=== PATIENT | female | born 1960 | race Caucasian/White ===

== ENCOUNTER → 2019-10-24 11:49 | Outpatient (CLI) | payer BC, SELFPAY ==
--- NOTE | ~2019-10-24 | CT_ITS ---
EXAMINATION: CT abdomen pelvis w con DATE: 10/24/2019 12:19 INDICATION: Left flank, low back and left lower quadrant abdominal pain. TECHNIQUE: Computed tomography (CT) of the abdomen and pelvis was performed without intravenous contr ast. Automated exposure control and iterative reconstruction technique were employed. The dose-length product was 1112.93 mGy-cm. COMPARISON: CT dated 11/12/2018 and MRI dated 11/23/2018 FINDINGS: Lung bases are clear. Heart size is normal. No pericardial or pleural effusion. Diffuse hepatic steat osis. Cholecystectomy clips at the gallbladder fossa. Spleen, pancreas and left adrenal gland are nor mal. No interval change in a 3.3 cm right adrenal adenoma. Again seen are couple macroscopic fat-cont aining angiomyolipomas at the lower pole of the left kidney, the larger with enhancing soft tissue co mponent measures 2.2 cm and the smaller measures 7 mm. There are a few bilateral centimeter low-atten uation renal cysts. Bilateral ureters are normal. No evident urolithiasis or hydronephrosis. Bladder is normal. The uterus is not identified and has likely been surgically resected. Bowels including t he appendix are normal. Small fat-containing umbilical hernia. No free intraperitoneal gas or fluid. No pathologically enlarged abdominal or pelvic lymphadenopathy. Severe lumbar spondylosis. IMPRESSION: 1. No acute intra-abdominal/pelvic process. 2. Unchanged 3.3 cm right adrenal adenoma. 3. Unchanged 2.2 and 0.7 cm left renal angiomyolipomas. Reviewed, dictated and finalized at location A. 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
[2019-10-24 12:10] LABS: Blood Urea Nitrogen 18 mg/dL (8-26); Estimated Glomerular Filt Rate 50
== END ==
PROVIDERS: PCP Family Medicine; Visit Provider Physician Assistant
DX: D35.01 Benign neoplasm of right adrenal gland (principal); D17.71 Benign lipomatous neoplasm of kidney; R10.32 Left lower quadrant pain
CPT/HCPCS: 74177; Q9967

== ENCOUNTER 2020-01-31 17:17 | Emergency (ER) | payer BC, SELFPAY ==
--- NOTE | ~2020-01-31 | XR_ITS ---
EXAMINATION: XR chest 2V DATE: 01/31/2020 17:57 INDICATION: Fever and shortness of breath TECHNIQUE: PA and lateral views of the chest are obtained. COMPARISON: 07/26/2019 FINDINGS: The lungs are free of acute opacities. There is no pleural effusion or pneumothorax. The ca rdiomediastinal silhouette is normal. There is mild thoracic spondylosis. IMPRESSION: 1. No acute cardiopulmonary abnormality. Reviewed, dictated and finalized at location A.
--- NOTE | ~2020-01-31 | CT_ITS ---
EXAMINATION: CT brain wo con INDICATION: Headache and fever COMPARISON: 08/21/2012 TECHNIQUE: Standard unenhanced head CT. The dose-length product (DLP) was 681.00 mGy-cm. The mA was a djusted according to patient size. Iterative reconstruction technique was employed. FINDINGS: There is no intracranial hemorrhage, acute infarction, or abnormal mass lesion. The ventric les are normal. There is no abnormal mass effect or midline shift. The neumann-white matter differentiat ion is normal. The basal cisterns are patent. The orbits are normal. The paranasal sinuses, mastoids and calvarium are normal. IMPRESSION: 1. No acute intracranial abnormality. Reviewed, dictated and finalized at location A.
--- NOTE | ~2020-01-31 | CT_ITS ---
EXAMINATION: CTA chest PE protocol DATE: 01/31/2020 20:14 INDICATION: Upper back pain and fever TECHNIQUE: Computed tomography angiography (CTA) of the chest was performed with 100 mL Omnipaque-350 intravenous contrast timed to evaluate the pulmonary arteries. Coronal maximum intensity projection 3D-reconstructions were created by the technologist. The dose-length product (DLP) was 873.91 mGy-cm. Automated exposure control and iterative reconstruction technique were employed. COMPARISON: 05/04/2018 FINDINGS: The pulmonary arteries are well-opacified. No pulmonary embolism is identified. There is mi ld dependent atelectasis. The lungs are free of focal airspace opacities. There is no pleural effusio n or pneumothorax. No pathologically enlarged thoracic lymph nodes are identified. The heart size is normal. There is mild thoracic spondylosis. IMPRESSION: 1. No pulmonary embolism or acute cardiopulmonary abnormality. Reviewed, dictated and finalized at location A.
[2020-01-31 17:21] VITALS: BP 144/88; PULSE 135; RESP 26; TEMP 37.1; O2SAT 97
--- NOTE | 2020-01-31 17:28 | ECG_ITS ---
Measurements Intervals [place] Rate: 131 P: 73 OR: 173 QRS: -38 QRSD: 76 T: 59 QT: 297 QTc: 438 Interpretive Statements SINUS TACHYCARDIA POOR R WAVE PROGRESSION, ANTERIOR LEADS INFERIOR INFARCT, AGE INDETERMINATE ABNORMAL ECG Electronically Signed On 02-01-2020 9:46:14 CDT by Mohan Herrera D.O.
[2020-01-31 18:05] LABS: Basophils Percent Auto 0.3 % (0.2-1.2); Eosinophils Percent Auto 0.2 % (0-4.4); Hematocrit 42.7 % (37.0-47.0); Hemoglobin 13.8 g/dL (12.0-15.0); Immature Granulocyte Absolute 0.06 K/mm3 (0.00-0.031); Immature Granulocyte Percent A 0.7 % (0-0.5); Lymphocytes Absolute Auto 1.02 K/mm3 (0.9-3.2); Lymphocytes Percent Auto 11.3 % (18.3-44.2); Mean Corpuscular HGB Conc 32.3 g/dl (32-36); Mean Corpuscular Hemoglobin 27.9 pg (26-34); Mean Corpuscular Volume 86.4 fl (80-100); Mean Platelet Volume 9.8 fl (7.4-10.4); Monocytes Absolute Auto 0.5 K/mm3 (0.1-0.6); Neutrophils Absolute Auto 7.4 K/mm3 (1.3-6.7); Neutrophils Percent Auto 82.5 % (45.5-73.1); Platelet Count Result 289 k/mm3 (150-375); Red Blood Count 4.94 M/mm3 (4.2-5.4); Red Cell Distribution Width 14.5 % (11.5-14.5)
[2020-01-31 18:19] VITALS: BP 157/90; PULSE 132; RESP 14; O2SAT 96
--- NOTE | 2020-01-31 18:19 | PC.NURSE ---
Called lab to add on PT INR PTT, MG, Trop I Baseline, C-reactive Protein.
[2020-01-31 18:21] LABS: Alanine Aminotransferase 43 U/L (4-35); Albumin Level 4.7 g/dL (3.5-5.1); Alkaline Phosphatase 108 U/L (38-126); Aspartate Amino Transferase 49 U/L (14-36); Bilirubin,Total 0.7 mg/dL (0.2-1.3); Blood Urea Nitrogen 16 mg/dL (7-17); Calcium 9.8 mg/dL (8.4-10.2); Carbon Dioxide 25 mmol/L (22-30); Chloride 99 mmol/L (98-107); Estimated CRCL calculation 65 ml/min; Estimated Glomerular Filt Rate 56; Glucose 168 mg/dL (65-105); Sodium 135 mmol/L (137-145)
--- NOTE | 2020-01-31 18:28 | ED.FEVER ---
HPI - Fever General Chief Complaint: Fever Stated Complaint: FEVER Time Seen by Provider: 01/31/20 18:04 Source: patient Mode of arrival: ambulatory Limitations: no limitations History of Present Illness HPI Narrative: This patient is a 59 year old female with history of asthma who presents for evaluation of body aches, headache, chills, diarrhea . She states 8 days ago she was having intermittent low grade fever . That last 2 days and then it resolved. She states she has been feeling well until yesterday. She developed fever of 101 F, headache, body aches, upper back pain and diarrhea. She reports shortness of breath but this is likely chronic due to her asthma. She states she is not really have a cough. She denies abdominal pain or urinary symptoms. She has been taken tylenol for her fever and her last dose was at 3 pm. She denies exposure to sick contacts. She describes her headache as diffuse but it is worse on her right side. Related Data Home Medications Medication Instructions Recorded Confirmed loratadine 10 mg tablet 10 mg PO DAILY 07/22/19 08/16/19 acetaminophen [Acetaminophen Extra 1,000 mg PO Q8H 08/05/19 08/16/19 Strength] aspirin [Aspir-81] 81 mg PO DAILY 08/05/19 08/16/19 biotin 10,000 mcg PO DAILY 08/05/19 08/16/19 oxybutynin chloride 10 mg PO DAILY 08/05/19 08/16/19 Allergies Allergy/AdvReac Type Severity Reaction Status Date / Time propranolol AdvReac Mild Rash Verified 01/31/20 17:27 Review of Systems Review of Systems: All systems reviewed & are unremarkable except as noted in HPI and below Constitutional: Constitutional: Reports chills, Reports fatigue and Reports fever(s) Cardiovascular: Cardiovascular: Denies chest pain and Reports rapid heart rate Respiratory: Respiratory: Denies cough, Denies dyspnea and Denies wheezing Gastrointestinal: Gastrointestinal: Denies abdominal pain, Reports diarrhea and Reports nausea Musculoskeletal: Musculoskeletal: Reports back pain and Reports myalgias Neurologic: Reports headache(s) Endocrine: Endocrine: Reports fatigue PMFSH Past Medical History Medical History (Updated 01/31/20 @ 21:05 by Lelia Denney MD) Essential (primary) hypertension Mild persistent asthma with exacerbation Type 2 diabetes mellitus with diabetic neuropathy, without long-term current use of insulin Surgical History Surgical History (Updated 01/31/20 @ 18:33 by Lelia Denney MD) H/O: hysterectomy Hx of cholecystectomy Social History Social History Smoking status: Never smoker Second hand tobacco smoke exposure: Yes Alcohol intake: current Gender identity (if verbalized by the patient): Female Exam Narrative: Exam Narrative: GENERAL: Well-appearing, well-nourished, and in no acute distress. HEAD: Normocephalic, atraumatic EYES: PERRLA and EOMI, conjunctiva clear without discharge EARS: TM's clear bilaterally without erythema or dullness NOSE: Nares clear, no rhinorrhea or epistaxis THROAT:Mucous membranes moist, Oropharynx normal without erythema, exudate, peritonsillar swelling or fluctuance NECK: Supple, without lymphadenopathy or mass RESPIRATORY: No respiratory distress, Airway patent, Respirations non-labored, Clear to auscultation without rales, rhonchi or wheeze HEART:tachycardic No murmur heard. Normal peripheral pulses. ABDOMEN: Soft, nontender, nondistended, normal active bowel sounds. No masses. No rebound or guarding, No organomegaly. EXTREMITIES: No edema, normal strength with full range of motion. SKIN: Warm, dry, normal color without rash NEURO: Alert and oriented x3. CN 2-12 grossly intact. No focal deficits. PSYCH: Normal mood and affect. Course Reevaluation(s) Reevaluation #1: PAtient states she feels better. I Discussed with patient imaging is unremarkable. I explained I don't know definite source. I Discussed she had blood cultures drawn to see if
[2020-01-31 18:31] VITALS: RESP 16; O2SAT 96
[2020-01-31 18:34] LABS: CRP 6.7 mg/dL (<1.0); Magnesium 1.4 mg/dL (1.6-2.3)
[2020-01-31 18:37] LABS: Prothrombin Time 12.6 Seconds (11.1-14.7)
[2020-01-31 18:39] LABS: Partial Thromboplastin Time 29.9 SECONDS (22.3-36.8)
[2020-01-31 18:42] LABS: Troponin I < 0.012 ng/mL (0.000-0.034)
[2020-01-31 19:06] LABS: Add Urine Microscopic? YES; Appearance Urine Clear (Clear); Bilirubin Urine Negative (Negative); Blood Urine Negative (Negative); Color Urine Yellow (Yellow); Glucose Urine UA Negative (Negative); Ketones Urine Negative (Negative); Leukocyte Esterase Ur Negative LEU/UL (Negative); Mucus Urine Rare /lpf; Nitrate Urine Negative (Negative); Protein Urine 1+ mg/dL (Negative); RBC Urine 0-2 /hpf (0-2); Specific Grav Ur 1.016 (1.001-1.035); Squamous Epithelial Cell Urine Rare /hpf (Few); Urobilinogen Urine Negative mg/dL (<2.0)
[2020-01-31 19:12] LABS: Lactic Acid Reflex 1.9 mmol/L (0.7-2.1)
[2020-01-31 19:36] VITALS: BP 116/70; PULSE 128; RESP 20; TEMP 38.3; O2SAT 96
[2020-01-31] MEDS: LACTATED RINGERS 1,000 ML 999 ML IV CONT (19:38)
[2020-01-31 19:39] LABS: Lactate Dehydrogenase 515 U/L (313-618)
[2020-01-31 19:41] LABS: D Dimer 0.71 ug/mL (<0.48)
[2020-01-31] MEDS: METOCLOPRAMIDE HCL INJ 10 MG/2 ML VIAL IV PUSH (19:41)
[2020-01-31] MEDS: KETOROLAC 30 MG/ML VIAL (*BKC) IV PUSH (19:41)
[2020-01-31 21:09] VITALS: BP 137/73; PULSE 113; RESP 20; TEMP 37; O2SAT 96
[2020-01-31 21:25] VITALS: BP 137/73; PULSE 113; RESP 20; TEMP 37; O2SAT 96
[2020-02-01 13:22] LABS: SARS-CoV-2 RNA PCR Negative
== END 2020-01-31 21:27 | disposition home or self-care (01) ==
PROVIDERS: Emergency Medicine; Emergency Provider General Practice; PCP Family Medicine
DX: R50.9 Fever, unspecified (principal); Z20.828 Contact with and (suspected) exposure to other viral communicable diseases; I10 Essential (primary) hypertension; J45.30 Mild persistent asthma, uncomplicated; E11.40 Type 2 diabetes mellitus with diabetic neuropathy, unspecified; Z79.82 Long term (current) use of aspirin; R00.0 Tachycardia, unspecified; R94.31 Abnormal electrocardiogram [ECG] [EKG]
CPT/HCPCS: 36415; 70450; 71046; 71275; 80053; 81001; 83605; 83615; 83735; 84484; 85025; 85380; 85610; 85730; 86140; 87040; 87635; 93005; 96361; 96374; 96375; 99284; C9803; J1200; J1885; J2765; J7120; Q9967; U0003

== ENCOUNTER 2021-04-22 07:42 | Outpatient (CLI) | payer OTHER, SELFPAY ==
--- NOTE | ~2021-04-22 | US_ITS ---
EXAMINATION: US abdomen limited DATE: 04/22/2021 09:27 INDICATION: Abnormal liver function tests TECHNIQUE: Multiple grayscale and Doppler ultrasound images of the abdomen were obtained. COMPARISON: CT, 10/24/2019 FINDINGS: Bowel gas obscures visualization of the pancreas. The visualized portions of the pancreas a re unremarkable. The liver demonstrates increased echogenicity, heterogenous echotexture, and decreas ed through transmission. No surface nodularity. Normal hepatopetal flow in the main portal vein. The gallbladder is surgically absent. The common bile duct measures 8 mm, consistent with post cholecyste ctomy state. IMPRESSION: 1. Diffuse hepatic steatosis. Reviewed, dictated and finalized at location B.
== END 2021-04-22 07:43 | disposition home or self-care (01) ==
LOC: ANHIMG 07:44
PROVIDERS: PCP Family Medicine; Visit Provider Physician Assistant
DX: R74.8 Abnormal levels of other serum enzymes (principal); K76.0 Fatty (change of) liver, not elsewhere classified
CPT/HCPCS: 76705

== ENCOUNTER 2021-06-17 10:38 | Outpatient (CLI) | payer OTHER, SELFPAY ==
--- NOTE | 2021-06-17 11:00 | NEURO_ITS ---
PATIENT NUMBER: [id number] IMPRESSION: # Complains of right hand numbness. # Right Carpal tunnel syndrome # Normal needle exam. Nerve Conduction Studies Anti Sensory Summary Table Stim Site NR Peak (ms) P-T Amp (?V) Site1 Site2 Delta-P (ms) Dist (cm) Sadiq (m/s) Right Median Anti Sensory (2-3nd Digit) Wrist 4.2 38.0 Wrist 2-3nd Digit 4.2 14.0 33 Wrist 4.4 58.7 Wrist 2-3nd Digit 4.2 14.0 33 Right Radial Anti Sensory (Base 1st Digit) Wrist 2.5 23.0 Wrist Base 1st Digit 2.5 0.0 Right Ulnar Anti Sensory (5th Digit) Wrist 2.5 98.0 Wrist 5th Digit 2.5 14.0 56 Motor Summary Table Stim Site NR Onset (ms) O-P Amp (mV) Site1 Site2 Delta-0 (ms) Dist (cm) Sadiq (m/s) Right Median Motor (Abd Poll Brev) Wrist 4.0 1.1 Elbow Wrist 6.2 29.0 47 Elbow 10.2 1.8 Right Ulnar Motor (Abd Dig Minimi) Wrist 2.8 6.0 A Elbow Wrist 5.2 28.0 54 A Elbow 8.0 4.6 F Wave Studies NR F-Lat (ms) L-R F-Lat (ms) Right Median (Mrkrs) (Abd Poll Brev) 28.77 Right Ulnar (Mrkrs) (Abd Dig Min) 28.30 EMG Side Muscle Nerve Root Ins Act Fibs Amp Dur Recrt Comment Right 1stDorInt Ulnar C8-T1 Nml Nml Nml Nml Nml Right Ext Indicis Radial (Post Int) C7-8 Nml Nml Nml Nml Nml Right Ext Digitorum Radial (Post Int) C7-8 Nml Nml Nml Nml Nml Right BrachioRad Radial C5-6 Nml Nml Nml Nml Nml Right PronatorTeres Median C6-7 Nml Nml Nml Nml Nml Right Abd Poll Brev Median C8-T1 Nml Nml Nml Nml Nml Right Triceps Radial C6-7-8 Nml Nml Nml Nml Nml MTDD
== END 2021-06-17 10:39 | disposition home or self-care (01) ==
PROVIDERS: PCP Family Medicine; Visit Provider Physician Assistant
DX: G56.01 Carpal tunnel syndrome, right upper limb (principal)
CPT/HCPCS: 95886; 95909

== ENCOUNTER 2021-11-02 16:13 | Outpatient (CLI) | payer OTHER, SELFPAY ==
--- NOTE | 2021-11-02 16:24 | ECG_ITS ---
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
== END 2021-11-02 16:14 | disposition home or self-care (01) ==
LOC: ANHCARD 16:16
PROVIDERS: PCP Family Medicine; Visit Provider Plastic Surgery
DX: I47.1 Supraventricular tachycardia (principal); I44.0 Atrioventricular block, first degree
CPT/HCPCS: 93005

== ENCOUNTER 2022-10-18 10:54 | Outpatient (RCR) | payer OTHER, SELFPAY ==
--- NOTE | 2022-10-18 12:56 | PTOPEVAL1 ---
Assessment and note entered by Theresa Beard, PT Evaluation Information Assessment Status Evaluation Diagnosis Back Pain Onset 10/14/22 Subjective Information Laura Gilmore reports she was diagnosed with arthritis in her back at the age of 21. She has tried physical therapy a couple times over the years but she got the most relief when using Diclofenac. She is unable to take that medication anymore though due to her kidneys. She recently applied for disability and so her doctor ordered updated spine x-rays and want to do a MRI as well. Her insurance will not let her get a MRI until she tries physical therapy again. She is reporting that back pain is on the right lower back and has gradually worsened over the years. She notes pain is worst first thing in the morning and the pain wakes her up at least once every night. She notes pain when she rolls over in bed and occasionally with prolonged walking or standing. She does not perform any regular exercises to treat her pain but is willing to learn and give it a try. Reported Pain Level Pain Score 4: Self Report Assessment PT Clinical Summary Laura Gilmore is a 62 y/o female who presents with chronic low back pain with an exacerbation on . She has difficulty with sleeping, rolling in bed, prolonged standing, and prolonged walking. 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 She objectively demonstrates decreased and painful lumbar AROM, tenderness at the right sacroiliac joint and L3 and L5 spinous processes, reproduction of pain with slump testing bilaterally, decreased core and hip girdle strength, and decreased functional abilities. She will benefit from skilled PT to address these physical and functional limitations. Plan of Care Interventions Electrical Stimulation,Hot Pack/Cold Pack,Manual Therapy,Neuro Re-education,Patient/Caregiver Educati,Therapeutic Activities,Therapeutic Exercise PT Services Indicated Yes Treatment Frequency and 2 times a week for 8 visits. Duration These treatments will address the objective and functional deficits as defined above. The patient will be advanced safely and appropriately in order for the patient to progress towards his/her prior level of function. Additional exercises will be introduced and as well as a comprehensive home exercise program upon discharge, if needed, ?to ensure carryover of functional gains achieved in the clinic. This
--- NOTE | 2022-12-21 17:33 | PTOPREEVAL ---
Assessment and note entered by JT File, PT Evaluation Information Assessment Status Re-evaluation Diagnosis Back Pain Onset 10/14/22 Subjective Information patient rpeorts she continues to be woken up by pain at times. she reports this happened last night. she reports her pain has been worse since she went on her trip. she complains of pain with rotation to the R, and NT in the lower back when reaching overhead and bending forward. Assessment PT Clinical Summary mrs. north presents to skilled PT services for her 8th skilled therapy visit. she continues to report pain in the lower back with activity. she has had a small setback from her trip, and would like to continue therapy to bring her pain down and achieve her remaining goals. as of this date, she has made progress towards all, but only met 1 goal. she continues to be a good candidate for rehab and would benefit from continued skilled PT intervention to achieve her remaining goals. Plan of Care Interventions Electrical Stimulation,Hot Pack/Cold Pack,Manual Therapy,Neuro Re-education,Patient/Caregiver Educati,Therapeutic Activities,Therapeutic Exercise PT Services Indicated Yes Treatment Frequency and continue skilled PT 1x weekly for 4 more visits Duration These treatments will address the objective and functional deficits as defined above. The patient will be advanced safely and appropriately in order for the patient to progress towards his/her prior level of function. Additional exercises will be introduced and as well as a comprehensive home exercise program upon discharge, if needed, ?to ensure carryover of functional gains achieved in the clinic. This treatment plan has been reviewed and agreement upon by the patient.
--- NOTE | 2023-01-18 09:02 | PTOPDC ---
Assessment and note entered by Farhat Vaz Evaluation Information Assessment Status Discharge Diagnosis back pain Onset 10/14/22 Subjective Information Pt. reports that her pain is less intense. She reports she still gets a brief twinge of pain with reaching overhead, but is able to be on her feet longer. She states that she will continue with exercise and is ready for discharge at this time. Assessment PT Clinical Summary Pt. demonstrates little change in her Oswestry score. Despite this she presents with improved subjective reports of pain. At this time she is encouraged to continue with her HEP addressing core strength and flexiblity and will be discharged from our care. Plan of Care PT Services Indicated Yes
== END 2023-01-03 23:59 | disposition home or self-care (01) ==
LOC: CHSPT 10:54
PROVIDERS: Visit Provider Nurse Practitioner
DX: M54.9 Dorsalgia, unspecified (principal)
CPT/HCPCS: 97014; 97110; 97112; 97140; 97161; G0283

== ENCOUNTER 2022-10-26 10:55 | Outpatient (CLI) | payer OTHER, SELFPAY ==
--- NOTE | 2022-10-28 15:01 | WPDHOLTEREM ---
Holter/Event Monitor Holter/Event Monitor Date of procedure: 10/26/22 Holter/Event Procedure: 48 Hr Holter Monitor Indications: Palpitations Conclusion: 1. 48 hour holter monitor on 10/26/22. 2. Underlying rhythm is sinus rhythm. HR range 63-111 bpm; average HR 79 bpm. 3. There are 3 premature supraventricular complexes and 4 supraventricular couplets. No supraventricular tachycardia. 4. There are 7 premature ventricular complexes and 1 ventricular triplet. No ventricular tachycardia. 5. No sinoatrial or atrioventricular blocks. No significant pauses greater than 2 seconds. 6. No symptoms available for correlation.
== END 2022-10-26 10:56 | disposition home or self-care (01) ==
PROVIDERS: PCP Family Medicine; Visit Provider Nurse Practitioner
DX: R00.2 Palpitations (principal)
CPT/HCPCS: 93225; 93226

== ENCOUNTER 2022-12-06 08:25 | Outpatient (CLI) | payer OTHER, SELFPAY ==
--- NOTE | ~2022-12-06 | NM_ITS ---
EXAMINATION: NM elmer stress w perfusion DATE: 12/06/2022 11:27 INDICATION: Dyspnea on exertion. TECHNIQUE: Rest images were obtained following intravenous administration of 10.1 mCi Tc99m tetrofosm in (Myoview). The patient was infused intravenously with Lexiscan (regadenoson). Then, 31.1 mCi Tc99m tetrofosmin (Myoview) was administered intravenously, and supine and prone stress images were obtain ed. Data was reconstructed into short axis and horizontal and vertical long axis SPECT images. Gated SPECT images were also obtained. COMPARISON: Myocardial perfusion imaging 04/18/2018, chest CT 01/31/2020 FINDINGS: There is no definite reversible or fixed perfusion abnormality to suggest ischemia or infar ction. There is no segmental wall motion abnormality. Left ventricular ejection fraction measures 6 1%. IMPRESSION: 1. No definite ischemia or infarct. 2. Normal left ventricular ejection fraction measuring 61%. Reviewed, dictated and finalized at location A.
--- NOTE | 2022-12-06 08:38 | ECHO_ITS ---
Patient Info Name: Laura Gilmore Age: 62 years : 1960 Gender: Female Ht: 64 in Wt: 210 lbs BSA: 2.12 m2 HR: 75 bpm BP: 109 / 76 mmHg Technical Quality: Good Exam Date: 12/06/2022 8:44 AM Exam Location: [facility] Patient Status: Outpatient Admit Date: 12/06/2022 Staff Ordering Physician: Mohan Herrera DO Preventive Medicine Officer: Ana Laura Mcduffie RDCS Attending Provider: Mohan Herrera DO Referring Physician: Javier PERDOMO; Exam Type: CA echo doppler color flow Study Info Indications R06.09 - Other forms of dyspnea Complete two-dimensional, color flow and Doppler transthoracic echocardiogram is performed. Summary 1. Complete two-dimensional, color flow and Doppler transthoracic echocardiogram is performed. 2. Left ventricular chamber dimension is normal. 3. Left ventricular systolic function is normal, estimated at 60-65%. 4. The left ventricular diastolic function is grade I diastolic dysfunction. 5. E/e' 12 is mildly elevated. 6. Global longitudinal strain is normal at -18.8%. 7. Left atrial chamber dimension is mildly enlarged. 8. There is mild aortic valve sclerosis. 9. The mitral valve has mildly calcified annulus. 10. No pulmonary hypertension, estimated pulmonary arterial systolic pressure is 25 mmHg. Left Ventricle E/e' 12 is mildly elevated. Global longitudinal strain is normal at -18.8%. Left ventricular chamber dimension is normal. Left ventricular systolic function is normal, estimated at 60-65%. The left ventricular diastolic function is grade I diastolic dysfunction. Right Ventricle Right ventricular systolic function is normal and with normal TAPSE 2.0 cm. Right ventricular chamber dimension is normal. Left Atria Left atrial chamber dimension is mildly enlarged. Right Atria Right atrial chamber dimension is normal. Aortic Valve The aortic valve is trileaflet. There is mild aortic valve sclerosis. There is no aortic valve stenosis. There is no aortic valve regurgitation. Pulmonic Valve There is no pulmonic regurgitation. Mitral Valve The mitral valve has mildly calcified annulus. There is no mitral valve stenosis. There is no mitral valve regurgitation. Tricuspid Valve There is no tricuspid valve regurgitation. No pulmonary hypertension, estimated pulmonary arterial systolic pressure is 25 mmHg. Pericardium/Pleural There is no pericardial effusion. Inferior Vena Cava Normal inferior vena cava with >50% collapse upon inspiration consistent with normal right atrial pressure, 5 mmHg. Aorta The aortic root size at the sinus of Valsalva is normal. Left Ventricular Outflow Tract Name Value Normal LVOT 2D LVOT Diameter 1.9 cm LVOT Doppler LVOT Peak Gradient 4 mmHg LVOT Mean Gradient 2 mmHg LVOT VTI 20 cm LVOT VTI/AV VTI Ratio 0.9 LVOT Stroke Volume 56 ml LVOT CO 4.2 l/min LVOT CI 2.0 l/min/m2 Pulmonic Valve
--- NOTE | 2022-12-06 08:38 | EST_ITS ---
Patient Info Name: Laura Gilmore Age: 62 years : 1960 Gender: Female Ht: 64 in Wt: 210 lbs BSA: 2.12 m2 HR: 73 bpm BP: 117 / 71 mmHg Heart Rhythm: Sinus Rhythm Exam Date: 12/06/2022 10:24 AM Exam Location: [facility] Stress Patient Status: Outpatient Admit Date: 12/06/2022 Staff Ordering Physician: Mohan Herrera DO Attending Provider: Mohan Herrera DO Exercise Technologist: Yola Basilio CT Exercise Physician: Mohan Herrera DO Exam Type: CA stress elmer w NM Study Info Indications R06.09 - Other forms of dyspnea A regadenoson stress test was performed. Summary 1. 1. Negative lexiscan stress test for ischemic ST changes by ECG criteria. 2. 2. Stable hemodynamics throughout the test. 3. 3. Nuclear scan to follow and will be reported separately. Please correlate with it. 4. 4. Patient informed of the above results. Protocol: Lexiscan Stress ECG Details Stage: REST Duration (min): 1 min : 17 sec HR (bpm): 77 SBP (mmHg): 117 DBP (mmHg): 71 Stage: REST Duration (min): 8 min : 27 sec HR (bpm): 76 SBP (mmHg): 117 DBP (mmHg): 71 Stage: STAGE 1 Duration (min): 0 min : 59 sec HR (bpm): 96 SBP (mmHg): 113 DBP (mmHg): 72 Stage: RECOVERY Duration (min): 1 min : 0 sec HR (bpm): 106 SBP (mmHg): 113 DBP (mmHg): 72 Stage: RECOVERY Duration (min): 2 min : 0 sec HR (bpm): 106 SBP (mmHg): 113 DBP (mmHg): 72 Stage: RECOVERY Duration (min): 3 min : 0 sec HR (bpm): 106 SBP (mmHg): 111 DBP (mmHg): 70 Stage: RECOVERY Duration (min): 3 min : 18 sec HR (bpm): 103 SBP (mmHg): 111 DBP (mmHg): 70 Rest HR: 76 bpm Peak HR: 107 bpm Rest Sys BP: 117 mmHg Peak Sys BP: 113 mmHg Max Pred HR: 156 bpm % Max Pred HR: 69 % Target HR: 133 bpm Max RPP: 12,091 bpm*mmHg Termination Reason: Completed protocol Cardiac Symptoms: Shortness of breath Total Time: 1 min : 0 sec Rest Morillo BP: 71 mmHg Peak Morillo BP: 72 mmHg Total Dose: 0.4 mg Resting ECG Sinus rhythm, delayed precordial R/S transition. Stress ECG No ST changes. Arrhythmias None. Report Signatures
== END 2022-12-06 08:26 | disposition home or self-care (01) ==
PROVIDERS: PCP Family Medicine; Visit Provider Internal Medicine Cardiovascular Disease
DX: R06.09 Other forms of dyspnea (principal)
CPT/HCPCS: 78452; 93017; 93306; A9502; J2785

== ENCOUNTER → 2023-01-17 11:50 | Outpatient (CLI) | payer OTHER, SELFPAY ==
--- NOTE | ~2023-01-17 | XR_ITS ---
Left elbow Technique: AP, oblique, and lateral views were obtained. Clinical History: Pain Findings: No acute fracture or dislocation is seen. Osseous alignment is anatomic. Joint spaces are p reserved. There is no displacement of the fat pads, and soft tissues are unremarkable. Impression: Unremarkable radiographs. Reviewed, dictated and finalized at location . Impression: Unremarkable radiographs.
--- NOTE | ~2023-01-17 | XR_ITS ---
Right ankle Technique: AP, oblique, and lateral views were obtained. Clinical History: Pain Findings: Tiny avulsion fracture from the tip of the lateral malleolus, likely chronic. No other frac ture or dislocation seen. Ankle mortise and other visualized joint spaces are preserved. Soft tissue s are otherwise unremarkable. Impression: Tiny avulsion fracture from the tip the lateral malleolus, likely chronic. Reviewed, dictated and finalized at location M. Impression: Tiny avulsion fracture from the tip the lateral malleolus, likely chronic.
== END ==
PROVIDERS: PCP Family Medicine; Visit Provider Family Medicine
DX: M25.522 Pain in left elbow (principal); S82.61XA Displaced fracture of lateral malleolus of right fibula, initial encounter for closed fracture; W19.XXXA Unspecified fall, initial encounter
CPT/HCPCS: 73080; 73610

== ENCOUNTER → 2023-02-11 09:23 | Outpatient (CLI) | payer OTHER, SELFPAY ==
--- NOTE | ~2023-02-11 | MR_ITS ---
MRI of the lumbar spine Clinical History: Back pain Technique: Axial T2-weighted images, and sagittal T1-weighted, T2-weighted, and T2 fat-sat images wer e acquired. Findings: There is no acute fracture identified in the lumbar spine. 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 There are reactive marrow signal changes throughout the L2 and L3 vertebral bodies, likely due to underlying degenerative disc change. 3 mm retrolisthesis of L2 ov er L3 present. 3 mm retrolisthesis of L3 over L4 present. 2 mm retrolisthesis of L4 over L5 present. At L1-L2, there is advanced degenerative disc narrowing. There is severe facet arthropathy. No signif icant disc bulge present. There is minimal central canal stenosis. Bilateral neural foramina are pres erved. At L2-L3, there is severe disc narrowing with diffuse disc bulge and severe facet arthropathy. There is moderate to severe central canal stenosis/thecal sac compression. There is moderate to severe righ t neural foraminal narrowing. There is mild left neural foraminal narrowing. At L3-L4, there is advanced degenerative disc narrowing. There is disc bulge and advanced facet arthr opathy, which contribute to moderate to severe spinal canal stenosis/thecal sac compression. There is moderate to severe left neural foraminal narrowing and mild right neural foraminal narrowing. At L4-L5, there is severe degenerative disc narrowing. There is minimal disc bulge with advanced face t arthropathy. No fidel central canal stenosis. There is moderate right neural foraminal narrowing an d mild to moderate left neural foraminal narrowing. At L5-S1, there is no disc bulge or herniation. There is severe facet arthropathy. No central canal s tenosis or neural foraminal narrowing. Paravertebral soft tissues are unremarkable. Impression: Moderate to severe degenerative spondylosis, as detailed above. Multiple grade 1 retrolistheses, as detailed above. Reviewed, dictated and finalized at location M. Impression: Moderate to severe degenerative spondylosis, as detailed above. Multiple grade 1 retrolistheses, as detailed above.
== END ==
PROVIDERS: PCP Family Medicine; Visit Provider Family Medicine
DX: M47.896 Other spondylosis, lumbar region (principal)
CPT/HCPCS: 72148

== ENCOUNTER → 2023-03-20 11:35 | Outpatient (CLI) | payer MEDICARE, SELFPAY ==
--- NOTE | ~2023-03-20 | CT_ITS ---
EXAMINATION: CT abdomen wo/w con DATE: 03/20/2023 12:14 INDICATION: Adrenal adenoma TECHNIQUE: Computed tomography (CT) of the abdomen and pelvis was performed without and with 100 mL O mnipaque-350 intravenous contrast. Automated exposure control and iterative reconstruction technique were employed. The dose-length product was 2140.33 mGy-cm. COMPARISON: 10/24/2019 FINDINGS: Mild atelectasis/scarring at the right middle lobe. Heart size is normal. No pericardial or pleural e ffusion. Cholecystectomy clips the gallbladder fossa. Liver, spleen, and pancreas are normal. Bilater al low-attenuation adrenal adenomas the largest on the right measuring 3.2 cm with 2 smaller adenomas at the left adrenal gland, the larger at the lateral limb measuring 1.3 cm with 7 mm adenoma at the medial limb. 2.5 cm mixed fat and soft tissue density angiomyolipoma at the lower pole of the left ki dney. Additional 8 mm macroscopic fat attenuation angiomyolipoma at the lower pole of the left kidney . Small bilateral renal cysts the largest measuring 1.1 cm the upper pole of the right kidney. Visual ized portions of bowels including the appendix are normal. No pathologically enlarged abdominal lymph adenopathy. Small fat-containing umbilical hernia. Severe lumbar and moderate lower thoracic spondylo sis. IMPRESSION: 1. Bilateral adrenal adenomas the largest on the right measuring 3.1 cm. 2. 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 Multiple angiomyolipomas can be seen in the setting of a comatose disease includ ing tuberous sclerosis, von Hippel-Lindau (vHL) syndrome, neurofibromatosis type I (NF1) and lymphang ioleiomyomatosis (GRAF). 3. Small fat-containing umbilical hernia. Reviewed, dictated and finalized at location A. IMPRESSION: 1. Bilateral adrenal adenomas the largest on the right measuring 3.1 cm. 2. A couple macroscopic fat attenuation angiomyolipomas at the lower pole of th e left kidney the larger measuring 2.5 cm. Multiple angiomyolipomas can be seen in the setting of a comatose disease including tuberous sclerosis, von Hippel- Lindau (vHL) syndrome, neurofibromatosis type I (NF1) and lymphangioleiomyomato sis (GRAF). 3. Small fat-containing umbilical hernia.
[2023-03-20 11:54] LABS: Estimated Glomerular Filt Rate 50
== END ==
PROVIDERS: PCP Family Medicine; Visit Provider Internal Medicine Endocrinology, Diabetes & Metabolism
DX: D35.02 Benign neoplasm of left adrenal gland (principal); D35.01 Benign neoplasm of right adrenal gland
CPT/HCPCS: 74170; Q9967

== ENCOUNTER 2024-05-08 00:20 | Day surgery (SDC) | payer MEDICARE, SELFPAY ==
[2024-05-01 15:13] VITALS: BMI 36.7
--- NOTE | 2024-05-01 15:38 | PC.NURSE ---
Addendum entered by Summer Oswald RN 05/01/24 16:15: Pt is aware that Dr Vivas wants her to have Nothing to eat after Midnight, and nothing to drink 8 hours prior to Surgery-(nothing after 05:00am that morning). Original Note: Report to the Outpatient Waiting Room, entrance under the green pavilion located off [facility], at time __11:15am on date _05/08/24 . Planned Procedure Time: ___1:30pm .? Time changes happen often and if your time is changed the preop area will call you the afternoon before. - You and your visitor will be asked to self-screen and do not enter if you have any COVID symptoms. Please call surgeon if you need to reschedule. - A mask is optional within the hospital at this time. Patients may have clear liquids (water, carbonated beverages, clear teas, apple juice) until 3 hours prior to surgery with a maximum of 20 ounces. - No food from midnight until time of surgery and no smoking Take only the following medications with a SIP of water on the morning of surgery: None May use inhalers as needed. DO NOT STOP ANY OF YOUR OTHER PRESCRIPTION MEDICATIONS PRIOR TO SURGERY EXCEPT THE FOLLOWING Medications to discontinue per physician ____Hold all Vitamins, Supplements, Probiotics, and Herbs 3 days prior per Anesthesia Date to take last dose___05/04/[address] Vivas office today to make sure she has instructions on her Aspirin preop instructions. office Phone # given to pt . Please no make-up, nail luxembourgish, hairspray, perfume, deodorant, or body powder the day of surgery.? No jewelry (including any body piercings) or valuables the day of surgery, leave them at home.? Please take a shower or bath the night before, or the morning of, surgery with an antibacterial soap.? Wear comfortable, loose fitting clothing.? Children are encouraged to wear pajamas. - Jewelry must be removed prior to entering the operating room.? Rings and piercings that are not removed may be cut off. - The hospital will not accept responsibility for valuables.? - Please leave all valuables, including medications, at home the day of surgery. If you are going home after surgery, a licensed company truck driver must drive you home.? - NO public transportation without another adult if you receive anesthesia. - We recommend that an adult stay with you for 24 hours following discharge. - We also recommend that you do not drive, make important decision, drink alcoholic beverages, or take any drugs that were not prescribed by your health care provider for at least 24 hours after your discharge time. Follow any additional instructions given to you from your surgeon. Telephone instructions given to ___patient and asked if any additional questions and then verbalized understanding. Patient advised to call surgeon office or pre surgery nurse liaison [phone] if any additional questions.
--- NOTE | 2024-05-08 06:58 | P.OP_ITS ---
Procedure Note - Detailed Date of Procedure 05/08/24 Pre-op Diagnosis trigger finger right ring finger Post-op Diagnosis Same Procedure Performed right ring finger a1 galdino release Surgeon Iona Vivas MD System Safety Engineer dylan mcdaniels pa-c Anesthesia MAC Description of Procedure INFORMED CONSENT: The patient was seen and examined and marked in the pre-op area.? The patient signed the consent form. PROCEDURE IN DETAIL:The patient taken back to OR on the stretcher in supine position. Time out performed with anesthesia, surgeon and staff agreeing on patient's name site and surgery to be performed SCDs were placed on the lower extremities and inflated. A tourniquet was placed on {right} upper extremity and antibiotics given IV After anesthesia administered sedation I injected {3}cc 1%lido and 0.5% marcaine plain at the operative site The?{right upper extremity}?was prepped and draped in sterile fashion the??{right upper extremity} was? exsanguinated with Esmarch bandage and tourniquet inflated to 250mmHg I proceeded with making a longitudinal incision over the right ring finger a1 galdino through skin and dermis with a 15 blade scalpel. Littler scissors were used to spread down to a1 galdino. The A1 galdino was initially incised with 15 blade then littler scissors were used to spread above and below it proximally and distally and completing the transection entirely. Ragnell retractors were used to withdraw the FDS and FDP tendons for inspection. They were free of masses and synovitis and gliding smoothly in the sheath without triggering or crepitus. The tendos were allowed to retract back in to the wound and I irrigated with normal saline and closed with 4-0 chromic. A dressing of xeroform, 4x4, agustina, and an harmeet bandage was applied after the tourniquet was let down noting the hand was warm and well perfused. The patient was then awaken from anesthesia and transferred to the recovery room in stable condition.? Complications - none EBL- 0cc Disposition - home in stable conditions Dylan Mcdaniels PA-C was essential for positioning, retraction, closure and dressing placement AM Billing Surgery - Charge Forward: Surgery Billing ([id number] for dylan)
--- NOTE | 2024-05-08 06:58 | PM.HPGS ---
History of Present Illness History of Present Illness Chief complaint: trigger finger right ring finger Narrative: Patient seen and examined in pre-operative holding area. No interval change in medical history or symptoms. Patient recalls previous discussion of benefits and alternatives to procedure. Continues to desire to proceed with right ring finger a1 galdino release. Reviewed procedure, post-op expectations and risks including but not limited to bleeding, infection, injury to tendon/nerve/vessel, decreased hand function, stiffness, RSD, no change or worsening of symptoms. I discussed the possible use of assistants and their participation in the case. Patient stated understanding and signed the consent form wishing to proceed. Review of Systems Review of Systems: All systems reviewed & are unremarkable except as noted in HPI and below PMFSH Past Medical History Medical History Asthma Essential (primary) hypertension Type 2 diabetes mellitus with diabetic neuropathy, without long-term current use of insulin Surgical History Surgical History H/O blepharoplasty H/O partial adrenalectomy H/O: hysterectomy Hx of cholecystectomy Family History Family History Father Diabetes mellitus Hypertension Malignant neoplasm of prostate Mother Hypertension Family history of malignant neoplasm of stomach, Onset Age: 71 Family history of primary malignant neoplasm of liver, Onset Age: 71 Family history of malignant neoplasm of uterus, Onset Age: 71 Grandparent Carcinoma of colon Family history of lung cancer Family history of malignant neoplasm of uterus Social History Social History Social History: Smoked in high school, rarely Years smoked: 4 Smoking status: Former smoker Tobacco type: cigarettes Second hand tobacco smoke exposure: Yes Smoking end date: 03/11/79 Alcohol intake: current Drinks per week: 2 Alcohol use details: Rarely Substance use: never Do You Feel Safe in your Home?: Yes Lack of Transportation: No Lack of Food: Never True Current Housing: I Have Housing Concerned About Future Housing: No Difficulty Paying Gas/Electric Bills: No Difficulty Paying for Meds: No Currently Unemployed: No Education: High School Diploma/GED Difficulty w/ Childcare or Family Care: No Living arrangements: with family Additional living arrangements comments: Gender identity (if verbalized by the patient): Female Spiritual care concerns: No Meds Home Medications and Allergies Home Medications Medication Instructions Recorded Confirmed Type loratadine 10 mg tablet (Claritin) 10 mg PO DAILY 07/22/19 05/01/24 History biotin 10,000 mcg capsule 10,000 mcg PO DAILY 08/05/19 05/01/24 History inhalational spacing device #1 ea 12/27/19 04/30/24 Rx (Aerochamber MV spacer) ascorbic acid (vitamin C) 1,000 mg 1 g PO DAILY 01/25/22 05/01/24 History tablet metformin 500 mg tablet,extended 500 mg PO DAILY 01/25/22 05/01/24 History release 24 hr cholecalciferol (vitamin D3) 125 125 mcg PO DAILY 10/24/22 05/01/24 History mcg (5,000 unit) capsule magnesium hydroxide 400 mg (170 mg 400 mg PO DAILY 10/24/22 05/01/24 History magnesium) chewable tablet vibegron 75 mg tablet (Gemtesa) 75 mg PO DAILY 10/24/22 05/01/24 History zinc gluconate 50 mg tablet 50 mg PO DAILY 10/24/22 05/01/24 History Symbicort 160 mcg-4.5 2 puff inhalation Q12H #30.6 grams 11/21/22 05/01/24 Rx mcg/actuation HFA aerosol inhaler (budesonide-formoterol) albuterol sulfate 90 mcg/actuation 1 - 2 puff inhalation Q4-6H PRN 11/23/22 05/01/24 Rx aerosol inhaler shortness of breath or wheezing #25.5 grams semaglutide 2 mg/dose (8 mg/3 mL) 2 mg subcut WEEKLY 1
[2024-05-08 11:39] VITALS: BP 126/66; PULSE 75; RESP 18; TEMP 36.2; O2SAT 100
--- NOTE | 2024-05-08 11:58 | WPDANESEPPF ---
Anes - Initial Pre Proc Eval Procedure: Operation Date: 05/08/24 13:15 Proposed Procedures p Right Ring Trigger Finger Release - Iona Vivas MD Date/Time: 05/08/24 11:58 Surgeon: Iona Vivas MD Pre Op Diagnosis: trigger finger right ring finger Patient Data Age: 63 Gender: F Height: 1.63 m Weight: 97 kg Allergies Allergy/AdvReac Type Severity Reaction Status Date / Time propranolol AdvReac Intermediate Rash Verified 05/01/24 14:43 naproxen [From Aleve] AdvReac Mild Nausea and Verified 05/01/24 14:43 Vomiting Home Medications Medication Instructions Recorded Confirmed Type loratadine 10 mg tablet (Claritin) 10 mg PO DAILY 07/22/19 05/01/24 History biotin 10,000 mcg capsule 10,000 mcg PO DAILY 08/05/19 05/01/24 History inhalational spacing device #1 ea 12/27/19 04/30/24 Rx (Aerochamber MV spacer) ascorbic acid (vitamin C) 1,000 mg 1 g PO DAILY 01/25/22 05/01/24 History tablet metformin 500 mg tablet,extended 500 mg PO DAILY 01/25/22 05/01/24 History release 24 hr cholecalciferol (vitamin D3) 125 125 mcg PO DAILY 10/24/22 05/01/24 History mcg (5,000 unit) capsule magnesium hydroxide 400 mg (170 mg 400 mg PO DAILY 10/24/22 05/01/24 History magnesium) chewable tablet vibegron 75 mg tablet (Gemtesa) 75 mg PO DAILY 10/24/22 05/01/24 History zinc gluconate 50 mg tablet 50 mg PO DAILY 10/24/22 05/01/24 History Symbicort 160 mcg-4.5 2 puff inhalation Q12H #30.6 grams 11/21/22 05/01/24 Rx mcg/actuation HFA aerosol inhaler (budesonide-formoterol) albuterol sulfate 90 mcg/actuation 1 - 2 puff inhalation Q4-6H PRN 11/23/22 05/01/24 Rx aerosol inhaler shortness of breath or wheezing #25.5 grams semaglutide 2 mg/dose (8 mg/3 mL) 2 mg subcut WEEKLY 08/25/23 05/01/24 History subcutaneous pen injector (Ozempic) blood sugar diagnostic (OneTouch #100 ea 11/30/23 04/30/24 Rx Verio test strips) montelukast 10 mg tablet 10 mg PO DAILY #90 tabs 01/17/24 05/01/24 Rx omeprazole 40 mg capsule,delayed 40 mg PO BID #180 caps 03/26/24 05/01/24 Rx release icosapent ethyl 1 gram capsule 2 g PO BID #360 caps 03/27/24 05/01/24 Rx pregabalin 100 mg capsule 100 mg PO BID 90 days #180 caps 04/30/24 05/01/24 Rx aspirin 81 mg tablet,delayed 81 mg PO DAILY 05/01/24 05/01/24 History release (Adult Low Dose Aspirin) azelastine 137 mcg (0.1 %) nasal 1 spray intranasal Q12H PRN Nasal 05/01/24 05/01/24 History spray Congestion calcium carbonate (Calcium 600) 600 mg PO DAILY 05/01/24 05/01/24 History fluticasone propionate 50 1 spray intranasal BID 05/01/24 05/01/24 History mcg/actuation nasal spray,suspension (Flonase Allergy Relief) metoprolol succinate 100 mg 100 mg PO DAILY 05/01/24 05/01/24 History tablet,extended release 24 hr tramadol 50 mg tablet 50 mg PO Q6H PRN pain #12 tabs 05/08/24 Rx Patient hx anesthesia problems: none Family hx anesthesia problems: none Results Review: All pre-operative results and documents have been reviewed as part of the pre-operative evaluation. [facility] Past Medical History Medical History Asthma Essential (primary) hypertension Type 2 diabetes mellitus with diabetic neuropathy, without long-term current use of insulin Surgical History Surgical History H/O blepharoplasty H/O partial adrenalectomy H/O: hysterectomy Hx of cholecystectomy Family History Family History Father Diabetes mellitus Hypertension Malignant neoplasm of prostate Mother Hypertension Family history of malignant neoplasm of stomach, Onset Age: 71 Family history of primary malignant neoplasm of liver, Onset Age: 71 Family history of malignant neoplasm of uterus, Onset Age: 71 Grandparent Carcinoma of colon Family history of lung cancer Hiren
[2024-05-08 12:14] LABS: Glucose Point of Care 83 mg/dl (65-105)
[2024-05-08] MEDS: ceFAZolin 2 GM/D5W 50 ML 2 GM/50 ML BAG IVPB (12:21)
[2024-05-08] MEDS: LIDOCAINE HCL 1% LOCAL INJ 10 ML VIAL 14 ML INFILTRATE (12:33)
[2024-05-08 12:34] VITALS: BP 110/58; PULSE 87; RESP 16; O2SAT 94
[2024-05-08] MEDS: LACTATED RINGERS 1,000 ML 30 ML IV CONT (12:34)
[2024-05-08 12:44] LABS: Glucose Point of Care 89 mg/dl (65-105)
[2024-05-08 13:05] VITALS: BP 94/55; PULSE 78; RESP 16
[2024-05-08 13:33] VITALS: BP 100/58; PULSE 74; RESP 16
== END 2024-05-08 13:37 | disposition home or self-care (01) ==
PROVIDERS: PCP Family Medicine; Visit Provider Plastic Surgery
PROC: (CPT 26055; principal; 2024-05-08 13:15)
DX: M65.341 Trigger finger, right ring finger (principal); I10 Essential (primary) hypertension; E11.9 Type 2 diabetes mellitus without complications; J45.909 Unspecified asthma, uncomplicated; Z87.891 Personal history of nicotine dependence; Z79.51 Long term (current) use of inhaled steroids; Z79.84 Long term (current) use of oral hypoglycemic drugs; Z79.85 Long-term (current) use of injectable non-insulin antidiabetic drugs; Z79.82 Long term (current) use of aspirin
CPT/HCPCS: 26055; 82948; A9270; J0690; J2250; J2704; J3010; J7120

== ENCOUNTER 2024-05-24 14:32 | Outpatient (CLI) | payer MEDICARE, SELFPAY ==
--- NOTE | ~2024-05-24 | DEXA_ITS ---
Bone Density Report Name: GLORIA MORRISON Age: 63 Sex: Female Ethnicity: White Date of : 1960 Indication: postmenopausal; screening for osteoporosis; prior fracture; asthma or emphysema; hysterectomy; Referring Provider: Mamta Solorio Study: Bone densitometry was performed. Exam Date: May 24, 2024 Accession number: [id number] Bone Density: Region BMD T-score Z-score Classification AP Spine(L1-L4) 1.558 4.6 6.5 Normal Femoral Neck (Left) 0.772 -0.7 0.9 Normal Total Hip (Left) 0.967 0.2 1.5 Normal Femoral Neck (Right) 0.943 0.8 2.4 Normal Total Hip (Right) 1.078 1.1 2.4 Normal Femoral Neck Mean 0.857 0.1 1.6 Normal Total Hip Mean 1.022 0.7 1.9 Normal World Health Organization criteria for BMD impression classify patients as: Normal (T-score at or above -1.0), Osteopenia (T-score between -1.0 and -2.5), or Osteoporosis (T-score at or below -2.5). 10-year Fracture Risk: FRAX not reported because: All T-scores for Spine Total, Hip Total, Femoral Neck at or above -1.0 Clinical Information Provided by Patient: Has had a low trauma fracture Has used the following medications: Vitamin D, Calcium Has the following medical conditions: Asthma or Emphysema, Hysterectomy Patient maximum height was 64 Menopause Age: 53 No regular weight bearing exercise Drinks caffeinated beverages Onset of menses at age 10 Number of children 2 Impression: The patient has normal bone mass. The patient has risk factors, including: previous fracture. Discussion: BONE DENSITY IS ABOVE THE MINIMUM DESIRABLE LEVEL AT ALL SKELETAL SITES TESTED. This patient?s bone mineral density is above the minimum desirable level (T-score -1.0 or better) at all sites measured. The patient should follow a healthful lifestyle (good nutrition with adequate calcium and vitamin D, and appropriate weight-bearing exercise). Follow-Up: Consider repeating this study in 5 years or sooner if there is some new clinical indication. Reported by: DAMARIS on 05/24/2024 3:00:00 PM. Reviewed, dictated and finalized at location AМарина AMADO
== END 2024-05-24 14:33 | disposition home or self-care (01) ==
LOC: CHSIMG 14:34
PROVIDERS: PCP Family Medicine; Visit Provider Nurse Practitioner
DX: Z78.0 Asymptomatic menopausal state (principal)
CPT/HCPCS: 77080

== ENCOUNTER 2024-06-26 10:37 | Day surgery (SDC) | payer MEDICARE, SELFPAY ==
[2024-06-06 12:47] VITALS: BMI 37.5
[2024-06-10 10:56] VITALS: BMI 37.4
--- NOTE | 2024-06-26 07:04 | WPDANESEPPF ---
Anes - Initial Pre Proc Eval Procedure: Operation Date: 06/26/24 12:30 Proposed Procedures p Esophagogastroduodenoscopy - Josue Mendoza MD Date/Time: 06/26/24 07:04 Surgeon: Josue Mendoza MD Pre Op Diagnosis: Dysphagia, Gerd Patient Data Age: 63 Gender: F Height: 1.63 m Weight: 99 kg Allergies Allergy/AdvReac Type Severity Reaction Status Date / Time propranolol AdvReac Intermediate Rash Verified 06/26/24 11:02 naproxen [From Aleve] AdvReac Mild Nausea and Verified 06/26/24 11:02 Vomiting Home Medications Medication Instructions Recorded Confirmed Type loratadine 10 mg tablet (Claritin) 10 mg PO DAILY 07/22/19 06/26/24 History biotin 10,000 mcg capsule 10,000 mcg PO DAILY 08/05/19 06/26/24 History inhalational spacing device #1 ea 12/27/19 06/04/24 Rx (Aerochamber MV spacer) ascorbic acid (vitamin C) 1,000 mg 1 g PO DAILY 01/25/22 06/26/24 History tablet metformin 500 mg tablet,extended 500 mg PO DAILY 01/25/22 06/26/24 History release 24 hr cholecalciferol (vitamin D3) 125 125 mcg PO DAILY 10/24/22 06/26/24 History mcg (5,000 unit) capsule magnesium hydroxide 400 mg (170 mg 400 mg PO DAILY 10/24/22 06/26/24 History magnesium) chewable tablet vibegron 75 mg tablet (Gemtesa) 75 mg PO DAILY 10/24/22 06/26/24 History zinc gluconate 50 mg tablet 50 mg PO DAILY 10/24/22 06/26/24 History albuterol sulfate 90 mcg/actuation 1 - 2 puff inhalation Q4-6H PRN 11/23/22 06/26/24 Rx aerosol inhaler shortness of breath or wheezing #25.5 grams semaglutide 2 mg/dose (8 mg/3 mL) 2 mg subcut WEEKLY 08/25/23 06/10/24 History subcutaneous pen injector (Ozempic) blood sugar diagnostic (OneTouch #100 ea 11/30/23 06/04/24 Rx Verio test strips) montelukast 10 mg tablet 10 mg PO DAILY #90 tabs 01/17/24 06/26/24 Rx omeprazole 40 mg capsule,delayed 40 mg PO BID #180 caps 03/26/24 06/10/24 Rx release icosapent ethyl 1 gram capsule 2 g PO BID #360 caps 03/27/24 06/26/24 Rx pregabalin 100 mg capsule 100 mg PO BID 90 days #180 caps 04/30/24 06/26/24 Rx aspirin 81 mg tablet,delayed 81 mg PO DAILY 05/01/24 06/26/24 History release (Adult Low Dose Aspirin) azelastine 137 mcg (0.1 %) nasal 1 spray intranasal Q12H PRN Nasal 05/01/24 06/26/24 History spray Congestion calcium carbonate (Calcium 600) 600 mg PO DAILY 05/01/24 06/26/24 History fluticasone propionate 50 1 spray intranasal BID 05/01/24 06/26/24 History mcg/actuation nasal spray,suspension (Flonase Allergy Relief) metoprolol succinate 100 mg 100 mg PO DAILY 05/01/24 06/26/24 History tablet,extended release 24 hr budesonide-formoterol HFA 160 2 puff inhalation Q12H PRN 06/10/24 06/26/24 History mcg-4.5 mcg/actuation aerosol Shortness Of Breath inhaler (Symbicort) cyanocobalamin (vitamin B-12) 5,000 unit PO DAILY 06/10/24 06/10/24 History elderberry fruit 200 mg capsule 3,000 mg PO DAILY 06/10/24 06/26/24 History Patient hx anesthesia problems: none Family hx anesthesia problems: none Results Review: All pre-operative results and documents have been reviewed as part of the pre-operative evaluation. [facility] Past Medical History Medical History (Updated 06/05/24 @ 11:31 by CROW Rosado) Asthma Dysphagia Essential (primary) hypertension History of trigger finger RUQ pain Type 2 diabetes mellitus with diabetic neuropathy, without long-term current use of insulin Surgical History Surgical History H/O blepharoplasty H/O partial adrenalectomy H/O: hysterectomy Hx of cholecystectomy Family History Family History Father Diabetes mellitus Hypertension Malignant neoplasm of prostate Mother Hypertension Family history of malignant neoplasm of stomach, Onset Age: 71 Family history of primary malignant neoplasm of liver, Onset Age: 71 Family history of malignant neopla
[2024-06-26 11:19] VITALS: BP 115/74; PULSE 75; RESP 20; TEMP 37.2; O2SAT 99; BMI 37.5
[2024-06-26] MEDS: LACTATED RINGERS 1,000 ML 150 ML IV CONT (11:23)
[2024-06-26 11:26] LABS: Glucose Point of Care 86 mg/dl (65-105)
--- NOTE | 2024-06-26 11:30 | PM.HPGS ---
History of Present Illness History of Present Illness Consent: Risks, benefits, and alternatives have been discussed and questions answered. Patient agrees to proceed with procedure. Chief complaint: Dysphagia, Gerd Narrative: Laura Gilmore is a 63 year old female referred for EGD planes of substernal heartburn. She states that meat loaf will occasionally pass slow. Occasionally has difficulty with slow passage of other intake. She was prescribed omeprazole 40mg p.o. daily. Recently this has been supplemented with Pepcid at bedtime. This has made no difference in her symptoms. Patient referred now for EGD to assess mucosa of the esophagus and stomach. Also to exclude stricture ring. It is of note that she had an EGD 5 years ago that was essentially unremarkable with similar symptoms. Review of Systems Review of Systems: All systems reviewed & are unremarkable except as noted in HPI and below PMFSH Past Medical History Medical History (Updated 06/05/24 @ 11:31 by Erica Rowell, [employer]) Asthma Dysphagia Essential (primary) hypertension History of trigger finger RUQ pain Type 2 diabetes mellitus with diabetic neuropathy, without long-term current use of insulin Surgical History Surgical History H/O blepharoplasty H/O partial adrenalectomy H/O: hysterectomy Hx of cholecystectomy Family History Family History Father Diabetes mellitus Hypertension Malignant neoplasm of prostate Mother Hypertension Family history of malignant neoplasm of stomach, Onset Age: 71 Family history of primary malignant neoplasm of liver, Onset Age: 71 Family history of malignant neoplasm of uterus, Onset Age: 71 Grandparent Carcinoma of colon Family history of lung cancer Family history of malignant neoplasm of uterus Social History Social History Social History: Smoked in high school, rarely Years smoked: 4 Smoking status: Never smoker Tobacco type: cigarettes Second hand tobacco smoke exposure: Yes Smoking end date: 03/11/79 Alcohol intake: current Drinks per week: 2 Alcohol use details: few times a year Substance use: never Substance use type: does not use Do You Feel Safe in your Home?: Yes Lack of Transportation: No Lack of Food: Never True Current Housing: I Have Housing Concerned About Future Housing: No Difficulty Paying Gas/Electric Bills: No Difficulty Paying for Meds: No Currently Unemployed: No Education: High School Diploma/GED Difficulty w/ Childcare or Family Care: No Living arrangements: with family Additional living arrangements comments: Occupation/Education: retired 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 Gender identity (if verbalized by the patient): Female Spiritual care concerns: No Meds Home Medications and Allergies Home Medications Medication Instructions Recorded Confirmed Type loratadine 10 mg tablet (Claritin) 10 mg PO DAILY 07/22/19 06/26/24 History biotin 10,000 mcg capsule 10,000 mcg PO DAILY 08/05/19 06/26/24 History inhalational spacing device #1 ea 12/27/19 06/04/24 Rx (Aerochamber MV spacer) ascorbic acid (vitamin C) 1,000 mg 1 g PO DAILY 01/25/22 06/26/24 History tablet metformin 500 mg tablet,extended 500 mg PO DAILY 01/25/22 06/26/24 History release 24 hr cholecalciferol (vitamin D3) 125 125 mcg PO DAILY 10/24/22 06/26/24 History mcg (5,000 unit) capsule magnesium hydroxide 400 mg (170 mg 400 mg PO DAILY 10/24/22 06/26/24 History magnesium) chewable tablet vibegron 75 mg tablet (Gemtesa) 75 mg PO DAILY 10/24/22 06/26/24 History zinc gluconate 50 mg tablet 50 mg PO DAILY 10/24/22 06/26/24 History albuterol sulfate 90 mcg/actuation 1 - 2 puff inhalation Q4-6H PRN 11/23/22 06/26/24 Rx aerosol inhaler
[2024-06-26 11:50] VITALS: BP 95/62; PULSE 81; RESP 16; O2SAT 94
[2024-06-26 12:00] VITALS: BP 95/63; PULSE 79; RESP 18; O2SAT 97
[2024-06-26 12:10] VITALS: BP 105/64; PULSE 78; RESP 18; O2SAT 98
--- NOTE | 2024-06-26 12:34 | WPDANESPN ---
Anes - Prog Note Post-Op Date/Time: 06/26/24 12:34 Cardiovascular status: normal Respiratory status: normal Airway patency: baseline Mental status: baseline Post-Op hydration status: normal Vital Signs: Last Vital Signs Temp 37.2 C 06/26/24 11:19 Pulse 78 06/26/24 12:10 Resp 18 06/26/24 12:10 BP 105/64 06/26/24 12:10 Pulse Ox 98 06/26/24 12:10 O2 Del Method Room Air 06/26/24 12:10 Pain Score (VAS): 0 I/O: Intake & Output 06/25/24 06/26/24 06/26/24 23:59 07:59 15:59 Intake Total 600 Balance 600 06/26/24 11:16 POC Capillary Glucose 86 Post-procedural complaints: none Patient Feedback: Patient satisfied with anesthetic care. Other Findings: Patient vital signs back to baseline. Patient denies nausea and vomiting. Patient's pain under control. Patient OK for discharge.
== END 2024-06-26 12:22 | disposition home or self-care (01) ==
PROVIDERS: PCP Family Medicine; Visit Provider Internal Medicine Gastroenterology
PROC: 0DJ08ZZ Inspection of Upper Intestinal Tract, Via Natural or Artificial Opening Endoscopic (ICD-10-PCS; CPT 43235; principal; 2024-06-26 12:30)
DX: K21.9 Gastro-esophageal reflux disease without esophagitis (principal); R13.19 Other dysphagia
CPT/HCPCS: 43239; 43450

== ENCOUNTER 2024-08-21 09:09 | Outpatient (CLI) | payer MEDICARE, SELFPAY ==
--- NOTE | ~2024-08-21 | US_ITS ---
Limited Abdominal Sonogram: Real-time sonographic imaging of the right upper quadrant was performed. Clinical History: Right upper quadrant pain Findings: The liver appears echogenic, with no evidence of mass lesion or bile duct dilatation. Main portal vein demonstrates normal direction of flow. The gallbladder is absent, compatible prior lidia cystectomy. The common bile duct measures 4 mm. The visualized pancreas, aorta, and IVC are unremark able. Impression: Diffuse fatty infiltration of the liver. Reviewed, dictated and finalized at location M. [facility] GENERAL OPERATIONAL TEST Impression: Diffuse fatty infiltration of the liver.
== END 2024-08-21 09:10 | disposition home or self-care (01) ==
LOC: GOSHIMG 09:10
PROVIDERS: PCP Family Medicine; Visit Provider Nurse Practitioner
DX: K76.0 Fatty (change of) liver, not elsewhere classified (principal)
CPT/HCPCS: 76705

== ENCOUNTER 2025-07-24 14:19 | Outpatient (CLI) | payer MEDICARE, SELFPAY ==
--- NOTE | ~2025-07-24 | US_ITS ---
EXAMINATION: US soft tissue head and neck, 07/24/2025 14:22 GARBAGE PERSON HISTORY: R22.1 - Localized swelling, mass and lump, neck Comparison: None Technique: Zamorano-scale and color Doppler images were obtained. Findings: Correlating with the palpable area there is a probable lymph node noted measuring 5 x 4 x 5 mm with a normal-appearing fatty hilum and no abnormal low. Similar adjacent lymph nodes are identified. Within the subcutaneous tissues there is a complex focus measuring 3 x 2 x 3 mm too small to characterize possibly scar tissue, no increased flow Impression: 1. Nonspecific lymph nodes with nonspecific subcutaneous probable scar tissue. Follow-up suggested to assess stability or resolution Reviewed, dictated and finalized at location P. AGE PERSON Impression: 1. Nonspecific lymph nodes with nonspecific subcutaneous probable scar tissue. Follow-up suggested to assess stability or resolution
== END 2025-07-24 14:20 | disposition home or self-care (01) ==
PROVIDERS: PCP Family Medicine; Visit Provider Family Medicine
DX: R22.1 Localized swelling, mass and lump, neck (principal)
CPT/HCPCS: 76536